=== PATIENT | male | born 1960 | race Caucasian/White ===

== ENCOUNTER 2019-06-11 18:01 | Inpatient (IN) | payer OTHER, MEDICAID ==
[~2019-06-11] VITALS: Ht 182.9 cm; Wt 100.7 kg
--- NOTE | 2019-06-11 19:30 | NUR ---
ADMISSION NOTES; see paper documentation. Admitted from ER for flu like symptoms with Diagnosis Severe headache r/o encephalopathy/Hypertensive emergency , BP WNL.
--- NOTE | 2019-06-12 02:00 | NUR ---
NOTES: pt. resting, informed pt. about his medications will start today, since the system was down and pharmacist needs to verify all orders. pt. on droplet isolation since pt. positive for influenza B. pt. feels warm on his forehead, offered ice pack instead wet washcloth applied, denies any headache. pt. instructed to use call light for help. still with occ. bouts of non productive cough.
[2019-06-12] MEDS ORDERED: traMADol HCL HCL 50 MG TABLET (ULTRAM) PO PRN (02:30)
[2019-06-12] MEDS ORDERED: ALBUTEROL SULFATE 0.083% 2.5 MG/3 ML VIAL.NEB INH PRN (03:15)
[2019-06-12 04:57] VITALS: BP_SYST 146
--- NOTE | 2019-06-12 05:15 | NUR ---
NOTES: pt. c/o headache, feeling warm on his forehead, checked temp, afebrille T 97.4. pt. been drinking a lot of fluids.
[2019-06-12] MEDS: ACETAMINOPHEN 325 MG TABLET PO PRN ×3 (05:34→17:37)
[2019-06-12 06:05] VITALS: BP_SYST 146
--- NOTE | 2019-06-12 06:15 | NUR ---
CLOSING NOTES: pt. remains awake, still feels stuffy , offered breathing treatment but refused, no shortness of breath, on room air. MRSA nares sent per protocol. cardiology, infection and neurology consult this am. CT scan of head today. call light within reach.
[2019-06-12] MEDS: PANTOPRAZOLE SODIUM 40 MG TAB PO SCH (07:53)
--- NOTE | 2019-06-12 08:00 | NUR ---
RN INITIAL NOTES RECEIVED PATIENT IN BED ALERT AWAKE WITH EPISODES OF DRY COUGH, NO DISTRESS , RESP EVEN AND UNLABORED , FOR CT OF THE HEAD TODAY , BRP AND SAFETY ENSURED .
[2019-06-12] MEDS: DOCUSATE SODIUM 250 MG CAPSULE PO SCH (09:14)
[2019-06-12] MEDS: LORazepam 1 MG TABLET PO SCH ×2 (09:15→17:35)
[2019-06-12] MEDS: BENZTROPINE MESYLATE 1 MG TABLET PO SCH (09:16)
[2019-06-12] MEDS: risperiDONE 1 MG TABLET (RisperDAL) PO SCH ×2 (09:17→22:06)
[2019-06-12] MEDS: amLODIPine BESYLATE 5 MG TABLET PO SCH (09:17)
[2019-06-12] MEDS: OXcarbazepine 150 MG TABLET(TRILEPTAL) PO SCH (09:18)
[2019-06-12] MEDS: OSELTAMIVIR PHOSPHATE 75 MG CAPSULE PO SCH (09:18)
[2019-06-12] MEDS: GEMFIBROZIL 600 MG TABLET (LOPID) PO SCH (09:18)
--- NOTE | 2019-06-12 10:00 | NUR ---
CT OF THE HEAD PATIENT CT OF THE HEAD DONE AND HE WANTS MEDS TO SLEEP EXPLAINED THAT IT WILL BE GIVEN GARDENIA
--- NOTE | 2019-06-12 12:00 | NUR ---
ROUNDS PATIENT ATE HIS LUNCH NO ALOC NO VOMITING
[2019-06-12 12:06] VITALS: BP_SYST 140
--- NOTE | 2019-06-12 14:00 | NUR ---
ROUNDS PATIENT IS SLEEPING NO SIGN OF DISTRESS
--- NOTE | 2019-06-12 16:00 | NUR ---
ROUNDS HEADACHE TYLENOL GIVEN AND MONITORED , CONT WITH DROPLET ISOLATION , PATIENT STILL WITH NON DRY PRODUCTIVE COUGH NO DISTRESS
[2019-06-12 17:26] VITALS: BP_SYST 141
--- NOTE | 2019-06-12 18:27 | NUR ---
ENDORSEMENT WILL CONT CARE PATIENT UNDERSTOOD PLAN OF CARE AND NO DISTRESS , CONT WITH TAMIFLU, COOPERATIVE IN CARE
[2019-06-13] MEDS ORDERED: traMADol HCL HCL 50 MG TABLET (ULTRAM) ONE (02:34)
[2019-06-13] MEDS: ACETAMINOPHEN 325 MG TABLET PO PRN ×2 (04:10→12:28)
[2019-06-13 07:18] LABS: BASOPHILS % (AUTO) 0.4 % (0.0-2.0); EOSINOPHILS % (AUTO) 0.2 % (0.0-4.0); HEMATOCRIT 42.1 % (36-54); HEMOGLOBIN 14.8 g/dL (14.0-18.0); LYMPHOCYTES # (AUTO) 0.6 K/uL (1.0-5.5); LYMPHOCYTES % (AUTO) 12.2 % (20.5-51.5); MEAN CORPUSCULAR HEMOGLOBIN 31 pg (27-31); MEAN CORPUSCULAR HGB CONC 35 % (32-36); MEAN CORPUSCULAR VOLUME 89 fL (79.0-98.0); MONOCYTES # (AUTO) 0.6 K/uL (0.0-1.0); MONOCYTES % (AUTO) 11.9 % (1.7-9.3); NEUTROPHILS % (AUTO) 75.3 % (40.0-70.0); PLATELET COUNT (AUTO) 195 K/uL (130-430); RED BLOOD CELL COUNT(AUTO) 4.75 MIL/uL (4.2-6.2); WHITE BLOOD COUNT (AUTO) 5.3 K/uL (4.8-10.8)
[2019-06-13 07:26] LABS: CALCIUM 8.5 mg/dL (8.4-11.0); CREATININE 1.01 mg/dL (0.55-1.30)
--- NOTE | 2019-06-13 08:00 | NUR ---
RN INITIAL NOTES RECEIVED PATIENT IN BED AWAKE NO DISTRESS, NO FACIAL GRIMACE NO SIGN OF DISTRESS, PATIENT STATED HE DID NOT SLEEP AT NIGHT ,EDITOR HOUSE ORGAN NIGHT NURSE ENDORSED PATIENT DID NO SLEEP TO CALL MD IN AM , INFORMED PATIENT WILL CALL MD , PATIENT WILL HAVE HIS AM ATIVAN TODAY TO CALM DOWN , PATIENT STILL WITH DRY NON PRODUCTIVE COUGH, NO FEVER, CONT ON TAMIFLU.
[2019-06-13] MEDS: amLODIPine BESYLATE 5 MG TABLET PO SCH (09:18)
[2019-06-13] MEDS: BENZTROPINE MESYLATE 1 MG TABLET PO SCH ×2 (09:19→22:06)
[2019-06-13] MEDS: DOCUSATE SODIUM 250 MG CAPSULE PO SCH ×2 (09:20→22:07)
[2019-06-13] MEDS: LORazepam 1 MG TABLET PO SCH ×3 (09:20→22:06)
[2019-06-13] MEDS: GEMFIBROZIL 600 MG TABLET (LOPID) PO SCH ×2 (09:54→22:07)
[2019-06-13] MEDS: OSELTAMIVIR PHOSPHATE 75 MG CAPSULE PO SCH ×2 (09:55→22:07)
[2019-06-13] MEDS: PANTOPRAZOLE SODIUM 40 MG TAB PO SCH (09:59)
--- NOTE | 2019-06-13 10:00 | NUR ---
ROUNDS PATIENT AWAKE AND ADVISED TO WATCH TV FOR DIVERSION PATIENT AWARE
[2019-06-13] MEDS: OXcarbazepine 150 MG TABLET(TRILEPTAL) PO SCH ×2 (10:05→22:07)
--- NOTE | 2019-06-13 12:00 | NUR ---
Dexetra[PLAIN OF INSOMNIA PATIENT INFORMED WILL CALL MD AGAIN AWAITING FOR MD TO CALL BACK
--- NOTE | 2019-06-13 14:00 | NUR ---
RESTORIL DR JOYCE RETURNED CALL AND ORDERED [facility] PRN HS INFORMED PATIENT
[2019-06-13] MEDS ORDERED: LORazepam 1 MG TABLET ONE ×2 (14:26→22:03)
--- NOTE | 2019-06-13 16:00 | NUR ---
ASLEEP PATIENT STILL SLEEPING AFTER ATIVAN GIVEN
--- NOTE | 2019-06-13 18:36 | NUR ---
ENDORSEMENT WILL ENDORSE TO NEXT SHIFT PATIENT JUST WOKE UP WILL CONT MEDS AND WANTS HID SLEEPING PILL AT [address] MARIA DEL CARMEN VARNER HERE AND WILL SEE PATIENT CONT MEDS
[2019-06-13 20:00] VITALS: BP_SYST 125
[2019-06-13] MEDS ORDERED: BENZTROPINE MESYLATE 1 MG TABLET ONE (22:01)
[2019-06-13] MEDS ORDERED: risperiDONE 1 MG TABLET (RisperDAL) ONE (22:02)
[2019-06-13] MEDS ORDERED: DOCUSATE SODIUM 250 MG CAPSULE PO ONE (22:04)
[2019-06-13] MEDS ORDERED: OSELTAMIVIR PHOSPHATE 75 MG CAPSULE ONE (22:07)
[2019-06-13] MEDS ORDERED: OXcarbazepine 150 MG TABLET(TRILEPTAL) ONE (22:12)
[2019-06-13] MEDS ORDERED: GEMFIBROZIL 600 MG TABLET (LOPID) ONE (22:14)
[2019-06-13] MEDS ORDERED: TEMAZEPAM 15 MG CAPSULE ONE (22:18)
[2019-06-13] MEDS: risperiDONE 1 MG TABLET (RisperDAL) PO SCH (22:36)
[2019-06-13] MEDS: TEMAZEPAM 15 MG CAPSULE PO PRN (22:36)
--- NOTE | 2019-06-14 | NUR ---
PT ALERT AND ORIENTED X3 PT MILDLY CONFUSED , PT REQUESTED WITH [facility] 15MG FOR SLEEP. PT WAS GIVEN TAMIFLU TONIGHT. WILL CONTINUE TO MONITOR PT . ,
[2019-06-14 01:52] VITALS: BP_SYST 127
--- NOTE | 2019-06-14 04:00 | NUR ---
PT SLEPT THROUGH THE NIGHT ,PT DID NOT REQUENT TO ANY MORE MEDICATION , PT SLEEPING QUITELY.
[2019-06-14 06:26] LABS: CALCIUM 8.7 mg/dL (8.4-11.0); CREATININE 1.27 mg/dL (0.55-1.30); POTASSIUM 3.5 mmol/L (3.5-5.1)
[2019-06-14 06:48] LABS: BASOPHILS % (AUTO) 0.5 % (0.0-2.0); EOSINOPHILS % (AUTO) 0.3 % (0.0-4.0); HEMATOCRIT 42.7 % (36-54); HEMOGLOBIN 14.9 g/dL (14.0-18.0); MEAN CORPUSCULAR HEMOGLOBIN 31 pg (27-31); MEAN CORPUSCULAR HGB CONC 35 % (32-36); MEAN CORPUSCULAR VOLUME 89 fL (79.0-98.0); MONOCYTES # (AUTO) 0.7 K/uL (0.0-1.0); MONOCYTES % (AUTO) 11.3 % (1.7-9.3); NEUTROPHILS # (AUTO) 4.7 K/uL (1.8-7.7); NEUTROPHILS % (AUTO) 71.9 % (40.0-70.0); PLATELET COUNT (AUTO) 229 K/uL (130-430); RED CELL DISTRIBUTION WIDTH 13.3 % (9.0-15.0); WHITE BLOOD COUNT (AUTO) 6.5 K/uL (4.8-10.8)
[2019-06-14] MEDS: PANTOPRAZOLE SODIUM 40 MG TAB PO SCH ×3 (07:08→09:41)
[2019-06-14] MEDS ORDERED: PANTOPRAZOLE SODIUM 40 MG TAB ONE ×2 (07:10→09:37)
[2019-06-14 08:00] VITALS: BP_SYST 110
--- NOTE | 2019-06-14 08:00 | NUR ---
Initial notes- In bed, sleepy. pt stated that he has good sleep at night for the first time. nad just want to sleep. denies any chest pain or shortness of breath, No fever. vital signs stable. Update plan of care, Enc. pt to call for help as needed. will monitor.
[2019-06-14] MEDS ORDERED: LORazepam 1 MG TABLET ONE ×2 (09:37→21:29)
[2019-06-14] MEDS ORDERED: BENZTROPINE MESYLATE 1 MG TABLET ONE ×2 (09:38→21:37)
[2019-06-14] MEDS ORDERED: amLODIPine BESYLATE 5 MG TABLET ONE (09:38)
[2019-06-14] MEDS ORDERED: risperiDONE 1 MG TABLET (RisperDAL) ONE ×2 (09:38→22:16)
[2019-06-14] MEDS ORDERED: DOCUSATE SODIUM 250 MG CAPSULE PO ONE ×2 (09:38→21:39)
[2019-06-14] MEDS ORDERED: GEMFIBROZIL 600 MG TABLET (LOPID) ONE ×2 (09:39→21:43)
[2019-06-14] MEDS ORDERED: OXcarbazepine 150 MG TABLET(TRILEPTAL) ONE ×2 (09:39→21:34)
[2019-06-14] MEDS: OSELTAMIVIR PHOSPHATE 75 MG CAPSULE PO SCH ×2 (09:40→21:57)
[2019-06-14] MEDS: GEMFIBROZIL 600 MG TABLET (LOPID) PO SCH ×2 (09:40→21:54)
[2019-06-14] MEDS: DOCUSATE SODIUM 250 MG CAPSULE PO SCH ×2 (09:41→21:50)
[2019-06-14] MEDS: OXcarbazepine 150 MG TABLET(TRILEPTAL) PO SCH ×2 (09:41→21:58)
[2019-06-14] MEDS: LORazepam 1 MG TABLET PO SCH ×3 (09:41→21:45)
[2019-06-14] MEDS: amLODIPine BESYLATE 5 MG TABLET PO SCH (09:42)
[2019-06-14] MEDS: BENZTROPINE MESYLATE 1 MG TABLET PO SCH ×2 (09:43→21:44)
[2019-06-14] MEDS: risperiDONE 1 MG TABLET (RisperDAL) PO SCH ×2 (09:43→22:02)
[2019-06-14] MEDS ORDERED: OSELTAMIVIR PHOSPHATE 75 MG CAPSULE ONE ×2 (09:53→21:36)
--- NOTE | 2019-06-14 10:38 | NUR ---
Resting, take all his morning meds. Pt just wants to sleep. Enc. Patient to call for help as needed.
--- NOTE | 2019-06-14 11:54 | NUR ---
CONSULTATION PAGED REASON FOR CONSULTATION:[facility] WAS CONSULT CALLED?Y PERSON WHO WAS NOTIFIED:JANIS CONSULTING PHYSICIAN:MARK WINTERS [employer] SPECIALTY:[employer] PHONE NUMBER:[phone] REQUESTING PHYSICIAN:CEDRIC BERRIOS
--- NOTE | 2019-06-14 12:00 | NUR ---
Notes- Eating lunch. Denies any pain or discomfort. No acute distress noted.
[2019-06-14 12:09] VITALS: BP_SYST 109
--- NOTE | 2019-06-14 15:00 | NUR ---
Rounds Pt asleep at this time. Breathing even and unlabored.Ativan held at this time.
[2019-06-14 16:07] VITALS: BP_SYST 118
--- NOTE | 2019-06-14 16:43 | NUR ---
DC PLANNING: SLIME SPOKE WITH BABITA (DELIMER @ [facility]) REGARDING ISOLATION POLICY FOR INFLUENZA POSITIVE. PER BABITA, THEY CAN ACCEPT PATIENT ANYTIME. PATIENT HAS HIS OWN PRIVATE ROOM.
--- NOTE | 2019-06-14 18:01 | NUR ---
Notes- In bed, resting. pt sleep most of the time. No acute distress noted. All needs meet through out shift. will endorse.
[2019-06-14 20:00] VITALS: BP_SYST 139
[2019-06-14] MEDS ORDERED: TEMAZEPAM 15 MG CAPSULE ONE (21:33)
[2019-06-14] MEDS: TEMAZEPAM 15 MG CAPSULE PO PRN (21:54)
--- NOTE | 2019-06-15 | NUR ---
TYPE OF MEDICATION. PT WILL BE MONITORED
--- NOTE | 2019-06-15 | NUR ---
PT RECIEVED ALERT AND ORIENTED X3 . NO C/O PAIN . NO SOB . ON IV NS PLUSH KCL 20MEQ KCL AT 75CC/HR DRSG ON THE FOOT DRSG DRY AND INTACT. PT BLOOD SUGAR 173 , PT GI 2 UNITS OF INSULIN .WILL COMTINUE TO OBSERVE PT .
[2019-06-15 00:43] VITALS: BP_SYST 112
--- NOTE | 2019-06-15 01:00 | NUR ---
PATIENT GIVEN VANCO 1 GM . PT GIVEN TYLENOL NUMBER 4 AND IMUDIUM. PT MONITORED FOR DIARRHEA .
--- NOTE | 2019-06-15 04:00 | NUR ---
PT STILL SLEEPING . WILL CONTINUE TO MONITOR
[2019-06-15 08:00] VITALS: BP_SYST 106
[2019-06-15] MEDS: amLODIPine BESYLATE 5 MG TABLET PO SCH (09:00)
[2019-06-15] MEDS: GEMFIBROZIL 600 MG TABLET (LOPID) PO SCH ×2 (11:20→20:30)
[2019-06-15] MEDS: risperiDONE 1 MG TABLET (RisperDAL) PO SCH ×2 (11:23→20:29)
[2019-06-15] MEDS ORDERED: LORazepam 1 MG TABLET ONE ×3 (11:24→20:40)
[2019-06-15] MEDS ORDERED: risperiDONE 1 MG TABLET (RisperDAL) ONE ×2 (11:25→20:40)
[2019-06-15] MEDS ORDERED: DOCUSATE SODIUM 250 MG CAPSULE PO ONE ×2 (11:25→20:40)
[2019-06-15] MEDS ORDERED: amLODIPine BESYLATE 5 MG TABLET ONE (11:25)
[2019-06-15] MEDS ORDERED: PANTOPRAZOLE SODIUM 40 MG TAB ONE (11:25)
[2019-06-15] MEDS ORDERED: BENZTROPINE MESYLATE 1 MG TABLET ONE ×2 (11:25→20:40)
[2019-06-15] MEDS ORDERED: GEMFIBROZIL 600 MG TABLET (LOPID) ONE ×2 (11:26→20:41)
[2019-06-15] MEDS ORDERED: OXcarbazepine 150 MG TABLET(TRILEPTAL) ONE ×2 (11:26→20:41)
[2019-06-15] MEDS ORDERED: OSELTAMIVIR PHOSPHATE 75 MG CAPSULE ONE ×2 (11:26→20:41)
[2019-06-15] MEDS: OXcarbazepine 150 MG TABLET(TRILEPTAL) PO SCH ×2 (11:26→20:30)
[2019-06-15] MEDS: LORazepam 1 MG TABLET PO SCH ×2 (11:26→20:30)
[2019-06-15] MEDS: DOCUSATE SODIUM 250 MG CAPSULE PO SCH ×2 (11:43→20:29)
[2019-06-15] MEDS: BENZTROPINE MESYLATE 1 MG TABLET PO SCH ×2 (11:46→20:29)
[2019-06-15] MEDS: OSELTAMIVIR PHOSPHATE 75 MG CAPSULE PO SCH ×2 (11:46→20:30)
[2019-06-15 12:12] VITALS: BP_SYST 130
[2019-06-15 14:27] VITALS: BP_SYST 130
[2019-06-15 16:10] VITALS: BP_SYST 116
--- NOTE | 2019-06-15 19:25 | NUR ---
OPENING NOTE RECEIVED CARE OF PT AND SBAR REPORT. PT IS AAOX4, RESTING IN BED, NO S/S OF ACUTE DISTRESS. BREATHING IS EVEN AND UNLABORED TO ROOM AIR. PT DENIES PAIN AT THIS TIME. PT REQUESTING SLEEPING PILL WITH HIS EVENING MEDICATIONS. VSS. PT ORIENTED TO USE OF CALL LIGHT AND ENCOURAGED TO CALL FOR ANY ASSISTANCE. SAFETY PRECAUTIONS ARE IN PLACE: BED IS LOCKED IN LOWEST POSITION, SIDE RAILS UP X2, CALL LIGHT IS WITH PT, PERSONAL ITEMS WITHIN REACH. WILL MONITOR.
[2019-06-15 20:00] VITALS: BP_SYST 109
[2019-06-15] MEDS: TEMAZEPAM 15 MG CAPSULE PO PRN (20:28)
--- NOTE | 2019-06-15 20:35 | NUR ---
MEDICATION PASS/[facility]OR[facility] SCHEDULED MEDICATIONS ADMINISTERED ORDERED. RESTORIL GIVEN PRN FOR INSOMNIA PER PT REQUEST. MEDICATIONS AND POTENTIAL SIDE EFFECTS DISCUSSED, PT VERBALIZED UNDERSTANDING. PT GIVEN FRESH ICE WATER AND JELLO PER REQUEST. PT DENIES FURTHER NEEDS AT THIS TIME. SAFETY PRECAUTIONS MAINTAINED. WILL MONITOR.
[2019-06-15] MEDS ORDERED: TEMAZEPAM 15 MG CAPSULE ONE (20:40)
--- NOTE | 2019-06-15 22:34 | NUR ---
RESTING PT RESTING IN BED, NO S/S OF ACUTE DISTRESS, BREATHING IS EVEN AND UNLABORED TO ROOM AIR WITH VISIBLE SYMMETRICAL RISE AND FALL OF CHEST. NO SOB NOTED. PT APPEARS COMFORTABLE AT THIS TIME. SAFETY AND DROPLET PRECAUTIONS MAINTAINED. WILL MONITOR.
[2019-06-16] VITALS (7 sets, daily range): BP systolic 114–140
--- NOTE | 2019-06-16 00:13 | NUR ---
RN ROUNDS: PT RESTING IN BED, NO S/S OF ACUTE DISTRESS, BREATHING IS EVEN AND UNLABORED TO ROOM AIR, SKIN WARM AND DRY TO TOUCH. SAFETY PRECAUTIONS MAINTAINED. WILL MONITOR.
--- NOTE | 2019-06-16 02:06 | NUR ---
SLEEPING: PT SLEEPING IN BED, NO S/S OF ACUTE DISTRESS, PT APPEARS COMFORTABLE. BREATHING IS EVEN AND UNLABORED TO ROOM AIR, SNORE CAN BE HEARD. SKIN WARM AND DRY TO TOUCH. SAFETY PRECAUTIONS MAINTAINED. WILL MONITOR.
--- NOTE | 2019-06-16 04:05 | NUR ---
RN ROUNDS: PT RESTING IN BED, NO S/S OF ACUTE DISTRESS, BREATHING IS EVEN AND UNLABORED TO ROOM AIR, AUDIBLE SNORING HEARD. SKIN WARM AND DRY TO TOUCH. SAFETY PRECAUTIONS MAINTAINED. WILL MONITOR.
[2019-06-16] MEDS: PANTOPRAZOLE SODIUM 40 MG TAB PO SCH (06:26)
[2019-06-16] MEDS ORDERED: PANTOPRAZOLE SODIUM 40 MG TAB ONE ×2 (06:39→09:04)
--- NOTE | 2019-06-16 07:29 | NUR ---
CLOSING NOTE PT RESTING IN BED IN NO ACUTE DISTRESS. PT SLEPT WELL THROUGHOUT THE NIGHT. REPORT GIVEN TO RENETTA HERNANDEZ FOR CONTINUITY OF CARE.
[2019-06-16] MEDS ORDERED: LORazepam 1 MG TABLET ONE ×2 (09:04→16:22)
[2019-06-16] MEDS ORDERED: BENZTROPINE MESYLATE 1 MG TABLET ONE (09:05)
[2019-06-16] MEDS ORDERED: risperiDONE 1 MG TABLET (RisperDAL) ONE (09:05)
[2019-06-16] MEDS ORDERED: amLODIPine BESYLATE 5 MG TABLET ONE (09:05)
[2019-06-16] MEDS ORDERED: DOCUSATE SODIUM 250 MG CAPSULE PO ONE (09:05)
[2019-06-16] MEDS ORDERED: OXcarbazepine 150 MG TABLET(TRILEPTAL) ONE (09:06)
[2019-06-16] MEDS ORDERED: OSELTAMIVIR PHOSPHATE 75 MG CAPSULE ONE (09:06)
[2019-06-16] MEDS ORDERED: GEMFIBROZIL 600 MG TABLET (LOPID) ONE (09:06)
[2019-06-16] MEDS: BENZTROPINE MESYLATE 1 MG TABLET PO SCH (09:20)
[2019-06-16] MEDS: LORazepam 1 MG TABLET PO SCH ×2 (09:20→16:16)
[2019-06-16] MEDS: OXcarbazepine 150 MG TABLET(TRILEPTAL) PO SCH (09:31)
[2019-06-16] MEDS: OSELTAMIVIR PHOSPHATE 75 MG CAPSULE PO SCH (09:32)
[2019-06-16] MEDS: DOCUSATE SODIUM 250 MG CAPSULE PO SCH (09:32)
[2019-06-16] MEDS: GEMFIBROZIL 600 MG TABLET (LOPID) PO SCH (09:32)
[2019-06-16] MEDS: risperiDONE 1 MG TABLET (RisperDAL) PO SCH (09:32)
[2019-06-16] MEDS: amLODIPine BESYLATE 5 MG TABLET PO SCH (09:34)
[2019-06-16] MEDS ORDERED: COMMUNICATION ORDER XX ONE (14:30)
[2019-06-16] MEDS ORDERED: LOP600 PO (15:25)
[2019-06-16] MEDS ORDERED: CARB200T PO (15:26)
[2019-06-16] MEDS ORDERED: OXCA150T5 PO (15:27)
[2019-06-16] MEDS ORDERED: AMLO2.5T2 PO (15:28)
[2019-06-16] MEDS ORDERED: LORA-259 PO (15:29)
[2019-06-16] MEDS ORDERED: OMEP10SU2 PO (15:30)
[2019-06-16] MEDS ORDERED: RISP1TAB27 PO (15:32)
[2019-06-16] MEDS ORDERED: DOCU250C14 PO (15:33)
[2019-06-16] MEDS ORDERED: BENZ2AMP IJ (15:47)
[2019-06-16] MEDS ORDERED: BENZ1TAB76 PO (15:49)
[2019-06-16] MEDS ORDERED: OSELTAMIVIR PHOSPHATE 75 MG CAPSULE PO ONE (16:00)
--- NOTE | 2019-06-16 17:06 | NUR ---
DC PLANNING: [facility] HAS NO TRANSPORTATION TO P[employer]ALL[employer] MACHINE OPERATOR PATIENT. PATIENT'S FRIEND HAS NOT ANSWERED PHONE CALL NOR CALL BACK. TRANSPORTATION HAS BEEN SETUP WITH [facility] @ SPOKE WITH IZABELLA (DISPTACH), P[employer] BALL[employer] MACHINE OPERATOR TIME IS AT 6:30PM. CHARGE NURSE SHAYNE MADE AWARE. MAGDALENA ROMERO APPROVED FOR THE TRANSPORTATION.
--- NOTE | 2019-06-16 18:55 | NUR ---
patient heplock removed, report given to care service van.drivers, dicharge papers given to pt. d/c to kali kumar
[2019-06-21 17:07] LABS: WHITE BLOOD COUNT (AUTO) 4.5 K/uL (4.8-10.8)
[2019-06-21 17:08] LABS: BASOPHILS % (AUTO) 0.6 % (0.0-2.0); EOSINOPHILS % (AUTO) 0.4 % (0.0-4.0); LYMPHOCYTES # (AUTO) 0.6 K/uL (1.0-5.5); LYMPHOCYTES % (AUTO) 12.8 % (20.5-51.5); MEAN CORPUSCULAR HEMOGLOBIN 31 pg (27-31); MEAN CORPUSCULAR HGB CONC 34 % (32-36); MEAN CORPUSCULAR VOLUME 91 fL (79.0-98.0); MONOCYTES # (AUTO) 0.6 K/uL (0.0-1.0); MONOCYTES % (AUTO) 13.8 % (1.7-9.3); NEUTROPHILS # (AUTO) 3.3 K/uL (1.8-7.7); NEUTROPHILS % (AUTO) 72.4 % (40.0-70.0); PLATELET COUNT (AUTO) 173 K/uL (130-430); RED CELL DISTRIBUTION WIDTH 13.2 % (9.0-15.0)
[2019-07-01 14:42] LABS: POTASSIUM 3.3 mmol/L (3.5-5.1)
[2019-07-01 14:43] LABS: ALBUMIN 3.4 g/dL (3.4-4.8); CALCIUM 8.3 mg/dL (8.4-11.0); CREATININE 1.2 mg/dL (0.55-1.30); TOTAL BILIRUBIN 0.2 mg/dL (0.0-1.0)
== END 2019-06-16 19:00 | disposition home or self-care (01) | DRG 153 ==
LOC: SMU 18:01
PROVIDERS: ADMIT Internal Medicine; ATTEND Internal Medicine
DX: J11.1 Influenza due to unidentified influenza virus with other respiratory manifestations (principal); I10 Essential (primary) hypertension; J32.9 Chronic sinusitis, unspecified
CPT/HCPCS: 36415; 70450-TC; 71045; 80048; 80053; 85025; 86710; 87081; G9035